=== PATIENT | male | born 1980 | race African-American/Black ===

== ENCOUNTER 2020-07-24 19:06 | Emergency (ER) | payer OTHER, BC, SELFPAY ==
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
[2020-07-24 19:10] VITALS: BP 158/94; PULSE 79; RESP 18; TEMP 36.5; O2SAT 96
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
[2020-07-24] MEDS: IBUPROFEN 600 MG TABLET PO (20:27)
[2020-07-24 20:30] VITALS: BP 132/87; PULSE 82; RESP 16; O2SAT 98
[2020-07-24 21:30] VITALS: BP 128/82; PULSE 76; RESP 20; O2SAT 96
== END 2020-07-24 21:30 | disposition home or self-care (01) ==
PROVIDERS: Emergency Provider Emergency Medicine; PCP Internal Medicine
DX: M25.511 Pain in right shoulder (principal); M25.561 Pain in right knee; M79.641 Pain in right hand; V49.40XA Driver injured in collision with unspecified motor vehicles in traffic accident, initial encounter
CPT/HCPCS: 73030; 73130; 73552; 73564; 99284; A9270

== ENCOUNTER 2020-09-01 08:49 | Outpatient (CLI) | payer OTHER, BC, SELFPAY ==
--- NOTE | ~2020-09-01 | XR_ITS ---
EXAMINATION: XR hand RT min 3V INDICATION: Right hand pain TECHNIQUE: Three views of the right hand are obtained. COMPARISON: 07/24/2020 FINDINGS: There is no fracture, dislocation, or subluxation. The bones, soft tissues, and joint space s are normal. There are no productive changes of bony healing. IMPRESSION: 1. No acute osseous abnormality. Reviewed, dictated and finalized at location A.
== END 2020-09-01 08:50 | disposition home or self-care (01) ==
PROVIDERS: PCP Internal Medicine; Visit Provider Internal Medicine
DX: M79.89 Other specified soft tissue disorders (principal)
CPT/HCPCS: 73130

== ENCOUNTER 2021-01-02 07:42 | Outpatient (CLI) | payer BC, SELFPAY ==
--- NOTE | 2021-01-17 13:15 | WPDHOMESLEEP ---
Sleep Study - Home Unattended Date of Study: 01/02/21 <Yudy Pollack DO - Last Filed: 01/17/21 13:46> Ordering Provider: Terell Cobos MD <Yudy Pollack DO - Last Filed: 01/17/21 13:46> Interpreting Provider: Yudy Pollack DO <Yudy Pollack DO - Last Filed: 01/17/21 13:46> Home Sleep Study Type: Apnea Link Air <Yudy Pollack DO - Last Filed: 01/17/21 13:46> Height: 1.75 m <Yudy Pollack DO - Last Filed: 01/17/21 13:46> Weight: 90.718 kg <Yudy Pollack DO - Last Filed: 01/17/21 13:46> Body Mass Index: 29.5 <Yudy Pollack DO - Last Filed: 01/17/21 13:46> Neck Circumference (inches): 18 <Yudy Pollack DO - Last Filed: 01/17/21 13:46> [place]: 14 <Yudy Pollack DO - Last Filed: 01/17/21 13:46> Reason for Sleep Study Daytime somnolence <Yudy Pollack DO - Last Filed: 01/17/21 13:46> Sleep History The patient is a 40-year-old male with hypertension that had a home sleep test ordered by his primary care physician due to daytime somnolence. 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 He often falls asleep sitting at home while watching TV. he rarely awakens from sleep short of breath. He denies awakening at night with heartburn, belching cough. He occasionally snores but it is rarely loud enough that others complain. He denies having trouble sleeping when he has a cold. He occasionally has breathing problems at night observed by others. He rarely sweats excessively at night. He denies heart palpitations or irregular heartbeats while sleeping. He frequently falls asleep during the day and rarely while driving. He rarely feels unable to move 1 waking up her falling asleep. He denies cataplexy. He constantly has trouble at work due to sleepiness. He rarely experiences vivid dreamlike scenes upon awakening or falling asleep. He rarely has nightmares. He frequently has thoughts racing through his mind. He denies feeling sad or depressed. He rarely is anxious. He frequently notices parts of his body jerk. He rarely kicks during the night. He denies experiencing crawling and aching feelings in his legs. He occasionally has leg pain during the night. He denies grinding his teeth during sleep and awakening with jaw pain in the morning. He is rarely bothered by pain during the day and is never bothered by pain throughout the night. He rarely wakes up feeling stiff in the morning with sore and achy muscles. He goes to bed at 8:00 a.m. on the week days. It takes him a few minutes to fall asleep. He wakes up 2-3 times per night. When he awakens, he will roll over, use the restroom and check with time. He can fall back asleep within a few minutes. He wakes up at 5:00 p.m. on the weekdays and it varies on the weekend. He typically gets 4-6 hours of sleep per night. He will typically stay in bed for 30 minutes after awakening. The patient does not consume any caffeinated beverages within 2 hours of going to bed. He denies engaging in physical exercise before bedtime. He does not read or watch television before falling asleep. He does take naps in the afternoon/evening which are refreshing. He denies recreational drug use. <Yudy Pollack DO - Last Filed: 01/17/21 13:46> [facility] Family History Family History: Family History Mother Hypertension Father Hypertension Grandparent Diabetes mellitus <Yudy Pollack DO - Last Filed: 01/17/21 13:46> Social History Social History: Social History Smoking status: Never smoker Tobacco type: e-cigarettes/vaping Second hand tobacco smoke exposure: Yes Alcohol intake: current Drinks per week: 5 <Yudy Pollack, DO - Last Saul
[2021-01-17 13:22] VITALS: BMI 29.5
== END 2021-01-04 12:02 | disposition home or self-care (01) ==
LOC: ANHCSM 07:43
PROVIDERS: PCP Internal Medicine; Visit Provider Internal Medicine
DX: G47.10 Hypersomnia, unspecified (principal); G47.9 Sleep disorder, unspecified
CPT/HCPCS: 95806

== ENCOUNTER 2024-01-17 14:39 | Outpatient (CLI) | payer BC, SELFPAY ==
--- NOTE | ~2024-01-17 | XR_ITS ---
Lumbosacral Spine: AP, oblique, and lateral views Clinical History: Pain Findings: The normal lordotic curve is maintained. The vertebral bodies and posterior elements are i ntact. The intervertebral disc spaces are preserved. There is mild to moderate facet arthropathy at the lower lumbar spine. No instability evident on flexion or extension. The sacroiliac joints are nor alexandro outlined. Impression: Mild to moderate facet arthropathy, as above. Reviewed, dictated and finalized at location M. O OPHTHALMOLOGIST Impression: Mild to moderate facet arthropathy, as above.
--- NOTE | ~2024-01-17 | XR_ITS ---
EXAM: XR hip RT min 2V DATE: 01/17/2024 15:04 HISTORY: Rt hip pain . COMPARISON: None available. FINDINGS: Normal mineralization. No fracture or dislocation. 1.5 cm lytic lesion in the femoral neck with no aggressive features, of doubtful clinical significance. Mild superior joint space narrowing in the right hip with minimal osteophytosis. No erosion or periosteal change. Minimal scattered enthe sopathy. Enthesopathy versus tendon calcification as can be seen with calcific tendinitis over the gr eater trochanter. IMPRESSION: Mild right hip osteoarthritis. Greater trochanter enthesopathy versus adjacent calcific t endinitis Reviewed, dictated and finalized at location K. MAKER IMPRESSION: Mild right hip osteoarthritis. Greater trochanter enthesopathy vers us adjacent calcific tendinitis
== END 2024-01-17 14:40 | disposition home or self-care (01) ==
PROVIDERS: PCP Chiropractor; Visit Provider Chiropractor
DX: M16.11 Unilateral primary osteoarthritis, right hip (principal); M54.50 Low back pain, unspecified
CPT/HCPCS: 72114; 73502